=== PATIENT | female | born 1990 | race Caucasian/White ===

== ENCOUNTER → 2016-11-02 | Outpatient (CLI) | payer OTHER ==
[~2016-11-02] MED LIST: C-LEXIN500 MG PO; LORTAB 5/500 501 TAB PO; LOW-OGESTREL 281 TAB PO; NEXIUM 40MG40 MG PO; PHENERGAN 25 TA25 MG PO; PRISTIQ100 MG PO; PROCHLORPERAZIN10 MG PO; XANAX .25M0.25 MG/TA PO
== END ==
LOC: BHSO 13:38
DX: F41.1 Generalized anxiety disorder (principal)

== ENCOUNTER → 2016-12-05 | Outpatient (CLI) | payer OTHER | LOC: BHSO 15:18 | DX: F41.1 Generalized anxiety disorder (principal) ==

== ENCOUNTER → 2017-01-29 | Outpatient (CLI) | payer OTHER | LOC: COL.RAD 09:27 | DX: K76.89 Other specified diseases of liver (principal) ==

== ENCOUNTER → 2017-02-08 | Outpatient (CLI) | payer OTHER | LOC: COL.RAD 12:10 | DX: R16.0 Hepatomegaly, not elsewhere classified (principal) ==

== ENCOUNTER → 2017-02-22 | Outpatient (CLI) | payer OTHER ==
[~2017-02-22] VITALS: Ht 152.4 cm; Wt 75.2 kg
[2017-02-22] VITALS (15 sets, daily range): BP systolic 109–139; BP diastolic 62–79; PULSE 54–93
[~2017-02-22] MED LIST changes: +ATARAX 25MG25 MG/TAB PO; +BRINTELLIX5 PO; +CRYSELLE 30 MCG1 TAB PO; +PRILOSEC 20MG20 MG PO; +SYNTHROID0.05 MG/TA PO; +VITAMIND3 5000 PO
[2017-02-22 12:30] LABS: INR 1.1 (0.8-3.0); PROTHROMBIN TIME 12.4 SECONDS (9.7-12.8)
== END ==
LOC: COL.RAD 11:53
PROVIDERS: Physician Assistant
DX: K76.9 Liver disease, unspecified (principal)

== ENCOUNTER → 2017-03-12 | Outpatient (CLI) | payer OTHER | LOC: BHSO 14:50 | DX: F41.1 Generalized anxiety disorder (principal) | CPT/HCPCS: G0463 ==

== ENCOUNTER → 2017-06-06 | Outpatient (CLI) | payer OTHER | LOC: BHSO 13:56 | DX: F41.1 Generalized anxiety disorder (principal) | CPT/HCPCS: G0463 ==

== ENCOUNTER 2017-07-30 23:13 | Emergency (ER) | payer OTHER ==
[~2017-07-30] VITALS: Ht 152.4 cm; Wt 75.0 kg
[2017-07-30 23:25] VITALS: TEMP 98.2
[2017-07-31 00:18] LABS: COLLECTION METHOD CLEAN CATCH
[2017-07-31 00:21] LABS: BASO # 0.1 (0.0-0.2); BASO % 0.5 % (0.0-2.0); EOS # 0.1 (0.0-0.7); GRAN # 7.2 (1.4-6.5); HEMOGLOBIN 11.5 g/dl (12.5-16.0); LYMPH # 3.4 (1.2-3.4); LYMPH % 29.4 % (20.0-51.0); MEAN CELL VOLUME 79 fl (80.0-100.0); MEAN CORPUSCULAR HEMOGLOBIN 26 pg (27.0-31.0); MEAN CORPUSCULAR HGB CONC 32 g/dl (33.0-37.0); MEAN PLATELET VOLUME 9.8 fl (7.4-10.4); MONO # 0.8 (0.1-0.6); MONO % 6.8 % (1.7-9.3); PLATELET COUNT 303 K/mm3 (130-400); RED BLOOD COUNT 4.51 M/mm3 (4.10-5.30); REDCELL DISTRIBUTION WIDTH-CV 13.9 % (11.5-14.5)
[2017-07-31 00:23] LABS: HEMATOCRIT 35.5 % (37.0-47.0)
[2017-07-31 00:27] LABS: AMORPHOUS CRYSTAL Present /uL; MUCOUS Present /lpf; PH 7 (5-8); URINE APPEARANCE Turbid; URINE BACTERIA None Seen /hpf; URINE BILIRUBIN Negative (NEGATIVE); URINE BLOOD Negative (NEGATIVE); URINE CALCIUM OXALATE CRYSTAL Present /hpf; URINE COLOR Yellow; URINE GLUCOSE Negative (NEGATIVE); URINE KETONE Negative (NEGATIVE); URINE LEUKOCYTE ESTERASE Negative (NEGATIVE); URINE NITRATE Negative (NEGATIVE); URINE PROTEIN(semi-quant) Negative (NEGATIVE); URINE RBC 0-2 /hpf; URINE UROBILINOGEN Negative (NEGATIVE)
[2017-07-31 00:36] LABS: BILIRUBIN,TOTAL 0.3 mg/dL (0.0-1.0); C-REACTIVE PROTEIN 1.3 mg/dL (0.0-0.9); CALCIUM 9.5 mg/dL (8.4-10.2); CREATININE, serum 0.6 mg/dL (0.52-1.25); POTASSIUM 4.1 mmol/L (3.4-5.0); TOTAL PROTEIN 7.4 gm/dL (6.4-8.2)
[2017-07-31 02:22] VITALS: BP 117/81; PULSE 79
== END 2017-07-31 02:25 | disposition home or self-care (01) ==
LOC: COL.ER 23:13
PROVIDERS: Emergency Medicine
DX: R10.31 Right lower quadrant pain (principal); F41.9 Anxiety disorder, unspecified; F17.210 Nicotine dependence, cigarettes, uncomplicated; E03.9 Hypothyroidism, unspecified; K21.9 Gastro-esophageal reflux disease without esophagitis; Z87.442 Personal history of urinary calculi
CPT/HCPCS: J1885; J2405; J7030; Q9967

== ENCOUNTER 2017-11-20 20:31 | Emergency (ER) | payer OTHER ==
[~2017-11-20] VITALS: Ht 152.4 cm; Wt 67.3 kg
[2017-11-20 20:32] VITALS: TEMP 98.6
[2017-11-20 21:31] LABS: COLLECTION METHOD CLEAN CATCH
[2017-11-20 21:34] LABS: BASO # 0.1 (0.0-0.2); BASO % 0.4 % (0.0-2.0); EOS # 0.1 (0.0-0.7); EOS % 0.7 % (0-4.0); GRAN # 7.3 (1.4-6.5); GRAN % 62.5 % (42.2-75.2); HEMATOCRIT 36.7 % (37.0-47.0); HEMOGLOBIN 11.7 g/dl (12.5-16.0); LYMPH # 3.5 (1.2-3.4); MEAN CELL VOLUME 78 fl (80.0-100.0); MEAN CORPUSCULAR HEMOGLOBIN 25 pg (27.0-31.0); MEAN CORPUSCULAR HGB CONC 32 g/dl (33.0-37.0); MEAN PLATELET VOLUME 9.6 fl (7.4-10.4); MONO # 0.7 (0.1-0.6); MONO % 6.1 % (1.7-9.3); PLATELET COUNT 316 K/mm3 (130-400); RED BLOOD COUNT 4.68 M/mm3 (4.10-5.30); REDCELL DISTRIBUTION WIDTH-CV 14.7 % (11.5-14.5)
[2017-11-20 21:51] LABS: MUCOUS Present /lpf; PH 5 (5-8); URINE APPEARANCE Clear; URINE BACTERIA Rare /hpf; URINE BILIRUBIN Negative (NEGATIVE); URINE BLOOD 2+ (NEGATIVE); URINE COLOR Yellow; URINE GLUCOSE Negative (NEGATIVE); URINE KETONE 1+ (NEGATIVE); URINE LEUKOCYTE ESTERASE Negative (NEGATIVE); URINE NITRATE Negative (NEGATIVE); URINE PROTEIN(semi-quant) Negative (NEGATIVE); URINE UROBILINOGEN Negative (NEGATIVE)
[2017-11-20 21:53] LABS: ALBUMIN 4.6 gm/dL (3.5-5.0); BILIRUBIN,TOTAL 0.3 mg/dL (0.0-1.0); C-REACTIVE PROTEIN 1.5 mg/dL (0.0-0.9); CALCIUM 9.6 mg/dL (8.4-10.2); CREATININE, serum 0.63 mg/dL (0.52-1.25); POTASSIUM 3.8 mmol/L (3.4-5.0); TOTAL PROTEIN 8.1 gm/dL (6.4-8.2)
[2017-11-20] MEDS ORDERED: ZOFRAN 4MG T4 MG/TAB PO (22:07)
[2017-11-20] MEDS ORDERED: NORCO 325 MG-51 TAB PO (22:07)
[2017-11-20 22:22] VITALS: BP 103/61; PULSE 64
== END 2017-11-20 22:22 | disposition home or self-care (01) ==
LOC: COL.ER 20:31
PROVIDERS: Emergency Medicine
DX: R10.10 Upper abdominal pain, unspecified (principal); F17.210 Nicotine dependence, cigarettes, uncomplicated; Z85.05 Personal history of malignant neoplasm of liver
CPT/HCPCS: J1170; J2405; J7030

== ENCOUNTER → 2017-12-18 | Outpatient (CLI) | payer OTHER ==
[~2017-12-18] MED LIST changes: +NORCO 325 MG-51 TAB PO; +ZOFRAN 4MG T4 MG/TAB PO
== END ==
LOC: BHSO 09:41
DX: F41.1 Generalized anxiety disorder (principal)
CPT/HCPCS: G0463

== ENCOUNTER 2018-06-19 19:52 | Emergency (ER) | payer OTHER ==
[~2018-06-19] VITALS: Ht 152.4 cm; Wt 66.4 kg
[2018-06-19 20:04] VITALS: BP 135/78; TEMP 99
[2018-06-19] MEDS ORDERED: AMOXICILLIN 8751 TAB PO (22:40)
[2018-06-19 23:17] VITALS: PULSE 75
== END 2018-06-19 23:17 | disposition home or self-care (01) ==
LOC: COL.ER 19:52
DX: S61.431A Puncture wound without foreign body of right hand, initial encounter (principal); F32.9 Major depressive disorder, single episode, unspecified; E03.9 Hypothyroidism, unspecified; F41.9 Anxiety disorder, unspecified; Z23 Encounter for immunization; Z87.891 Personal history of nicotine dependence; W55.01XA Bitten by cat, initial encounter

== ENCOUNTER 2018-06-21 08:11 | Emergency (ER) | payer OTHER ==
[~2018-06-21] VITALS: Ht 152.4 cm; Wt 67.5 kg
[~2018-06-21 08:11] MED LIST changes: +AMOXICILLIN 8751 TAB PO
[2018-06-21 08:22] VITALS: BP 114/65; TEMP 98.4
[2018-06-21 09:26] VITALS: PULSE 74
== END 2018-06-21 09:57 | disposition home or self-care (01) ==
LOC: COL.ER 08:11
DX: S61.452A Open bite of left hand, initial encounter (principal); L03.114 Cellulitis of left upper limb; F41.9 Anxiety disorder, unspecified; Z87.891 Personal history of nicotine dependence; W55.01XA Bitten by cat, initial encounter; Y92.219 Unspecified school as the place of occurrence of the external cause
CPT/HCPCS: J0696

== ENCOUNTER → 2018-06-23 | Outpatient (CLI) | payer OTHER | LOC: BHSO 10:02 | DX: F41.1 Generalized anxiety disorder (principal) | CPT/HCPCS: G0463 ==